=== PATIENT | male | born 1975 | race Caucasian/White ===

== ENCOUNTER 2025-01-30 11:51 | Emergency (ER) | payer OTHER ==
[2025-01-30] MEDS ORDERED: ASPIRIN 81 MG CHEWABLE TABLET ONE (12:20)
[2025-01-30 12:25] LABS: Absolute Lymphocytes (CBC) 1.7 K/uL (0.7-4.9); Absolute Monocytes 0.5 K/uL (0.1-1.3); Basophils % 0.8 % (0-1.3); Eosinophils % 0.7 % (0-4.4); Hematocrit 40.9 % (39.6-49.0); Hemoglobin 14.1 g/dL (13.6-17.9); Lymphocytes % 26.9 % (15.3-44.8); MCHC 34.3 g/dL (32.0-36.0); MPV 7.3 fL (7.6-11.3); Monocytes % 8.5 % (3.3-12.3); Neutrophils % 63.1 % (41.7-73.7); Platelets 302 thou/uL (152-406); Red Cell Distribution Width 14.3 % (12.1-15.2)
[2025-01-30 12:43] LABS: Anion Gap 7.1 mEq/L (5.0-15.0); Potassium 4.1 mEq/L (3.5-5.1); Troponin High Sensitivity 4.9 pg/mL (<58.9)
--- NOTE | 2025-01-30 13:04 | RAD REPORT ---
Procedure: Chest Single View HISTORY: Chest pain COMPARISON: none FINDINGS: The lungs appear clear of acute infiltrate. No significant pleural effusion noted. The heart is normal size. IMPRESSION: No acute abnormality is displayed.
--- NOTE | 2025-01-30 15:04 | ER ---
Nurse's Notes [facility] [place]yllis Name: Miguel Reddy Age: 49 yrs Sex: Male : 1975 Arrival Date: 01/30/2025 Time: 11:51 Bed 2 Private MD: Diagnosis: Chest pain, unspecified Presentation: 01/30 12:01 Chief complaint: EMS states: CHEST PAIN RADIATING TO JAW LAST NIGHT AND THIS AM. bp Coronavirus screen: At this time, the client does not indicate any symptoms associated with coronavirus-19. Ebola Screen: No symptoms or risks identified at this time. Initial Sepsis Screen: Does the patient meet any 2 criteria? No. Patient's initial sepsis screen is negative. Does the patient have a suspected source of infection? No. Patient's initial sepsis screen is negative. Risk Assessment: Do you want to hurt yourself or someone else? Patient reports no desire to harm self or others. Onset of symptoms was January 29, 2025 at 19:00. 12:01 Method Of Arrival: EMS: [facility] bp 12:01 Acuity: YOLANDA 3 bp Triage Assessment: 12:03 General: Appears in no apparent distress. comfortable, Behavior is calm, cooperative, bp appropriate for age. Pain: Complains of pain in chest. EENT: No deficits noted. Neuro: No deficits noted. Cardiovascular: Reports chest pain. Respiratory: No deficits noted. GI: No signs and/or symptoms were reported involving the gastrointestinal system. : No signs and/or symptoms were reported regarding the genitourinary system. Derm: No deficits noted. Musculoskeletal: No deficits noted. Historical: - Allergies: 12:03 No Known Allergies; bp - PMHx: 12:03 Anxiety; bp - Immunization history:: Adult Immunizations up to date. - Infectious Disease History:: Denies. - Social history:: Smoking status: Patient denies any tobacco usage or history of. Screenin:04 [facility] ED Fall Risk Assessment (Adult) History of falling in the last 3 months, bp including since admission No falls in past 3 months (0 pts) Confusion or Disorientation No (0 pts) Intoxicated or Sedated No (0 pts) Impaired Gait No (0 pts) Mobility Assist Device Used No (0 pt) Altered Elimination No (0 pt) Score/Fall Risk Level 0 - 2 = Low Risk Oriented to surroundings. Abuse screen: Denies threats or abuse. Denies injuries from another. Nutritional screening: No deficits noted. Tuberculosis screening: No symptoms or risk factors identified. Assessment: 12:04 General: Appears in no apparent distress. Behavior is calm, cooperative, appropriate bp for age. 13:08 Reassessment: Patient appears in no apparent distress at this time. Patient is alert, bp oriented x 3, equal unlabored respirations, skin warm/dry/pink. 14:23 Reassessment: 2nd TROP SENT. bp Vital Signs: 12:01 BP 132 / 79; Pulse 87; Resp 12; Temp 98; Pulse Ox 99% ; bp 13:08 BP 114 / 82; Pulse 75; Resp 16; Pulse Ox 96% ; bp 14:23 BP 107 / 82; Pulse 78; Resp 13; Pulse Ox 98% ; bp 15:20 BP 120 / 83; Pulse 70; Resp 16; Pulse Ox 100% ; bp ED Course: 12:01 Patient arrived in ED. bp 12:02 Jeramy Booker DO is Attending Physician. ms3 12:03 Triage completed. bp 12:03 Arm band placed on. bp 12:04 Patient has correct armband on for positive identification. Client placed on continuous bp cardiac and pulse oximetry monitoring. NIBP monitoring applied. documentation lead on. Pulse ox on. NIBP on. 12:04 Patient maintains SpO2 saturation greater than 95% on room air. bp 12:06 Jarocho Venegas, RN is Primary Nurse. bp 12:16 Initial lab(s) drawn, by me, sent to lab. EKG done, by ED staff, reviewed by Jeramy Booker DO. Inserted saline lock: 20 gauge in right antecubital area, using aseptic technique. Blood collected. Flushed with 10 mL NS. 13:00 XRAY Chest (1 view) In Process Unspecified. EDMS 14:12 Troponin High Sensitivity: To be drawn at 1416 Sent. jl7 15:04 Ellis Guzman MD is Referral Physician. ms3 15:20 Provided Education on: NONE. bp 15:20 No provider procedures requiring assistance completed. IV discontinued, intact, bp bleeding controlled, No redness/swelling at site. Pressure dressing applied. Administered Medications: 12:22 Drug: Aspirin PO Chewable Tablet 324 mg PO once; 81 mg tablets x 4 Route: PO; bp 12:22 Follow up: Response: No adverse reaction bp Medication: 12:04 VIS not applicable for this client. bp Outcome: 15:04 Discharge ordered by ms3 15:20 Discharged to home ambulatory, with family, bp 15:20 Condition: stable 15:20 Discharge instructions given to patient, Instructed on discharge instructions, follow up and referral plans. Demonstrated understanding of instructions, follow-up care, 15:22 Patient left the ED. bp Signatures: Dispatcher [employer] Hemanth Atwood RN RN jl7 Jarocho Venegas RN RN bp Jeramy Booker DO DO ms3
--- NOTE | 2025-01-30 15:04 | EDPHYS ---
Physician Documentation [facility] Name: Miguel Reddy Age: 49 yrs Sex: Male : 1975 Arrival Date: 01/30/2025 Time: 11:51 Bed 2 Private MD: ED Physician Jeramy Booker HPI: 01/30 12:08 This 49 yrs old Male presents to ER via EMS with complaints of Chest Pain. ms3 12:08 49-year-old male with past medical history of anxiety presents to the emergency ms3 department via [facility] for chest pain. Patient states he began experiencing chest pain last night that resolved and then returned approximately 30 minutes prior to arrival in the emergency department. Patient states his pain has improved since EMS arrival. Patient's pain is currently 2/10 from a 5-6/10. Patient endorses nausea, denies vomiting, endorses shortness of breath. EMS notes twelve-lead was normal sinus. Historical: - Allergies: 12:03 No Known Allergies; bp - PMHx: 12:03 Anxiety; bp - Immunization history:: Adult Immunizations up to date. - Infectious Disease History:: Denies. - Social history:: Smoking status: Patient denies any tobacco usage or history of. ROS: 12:08 Constitutional: Negative for fever, and chills. Respiratory: Negative for shortness of ms3 breath, cough, wheezing, and pleuritic chest pain, Abdomen/GI: Negative for abdominal pain, nausea, vomiting, diarrhea, and constipation, MS/Extremity: Negative for injury and deformity, 12:08 Cardiovascular: Positive for chest pain, Exam: 12:08 Constitutional: This is a well developed, well nourished patient who is awake, alert, ms3 and in no acute distress. 12:08 Respiratory: Lungs have equal breath sounds bilaterally, clear to auscultation and percussion. No rales, rhonchi or wheezes noted. No increased work of breathing, no retractions or nasal flaring. Abdomen/GI: Soft, non-tender, with normal bowel sounds. No distension or tympany. No guarding or rebound. No evidence of tenderness throughout. Skin: Warm, dry with normal turgor. Normal color with no rashes, no lesions, and no evidence of cellulitis. 12:08 Cardiovascular: Rate: normal, Rhythm: regular, Pulses: no pulse deficits are appreciated, Heart sounds: normal, normal S1and S2, 12:15 ECG was reviewed by the Attending Physician. ms3 Vital Signs: 12:01 BP 132 / 79; Pulse 87; Resp 12; Temp 98; Pulse Ox 99% ; bp 13:08 BP 114 / 82; Pulse 75; Resp 16; Pulse Ox 96% ; bp 14:23 BP 107 / 82; Pulse 78; Resp 13; Pulse Ox 98% ; bp 15:20 BP 120 / 83; Pulse 70; Resp 16; Pulse Ox 100% ; bp MDM: 12:02 Medical Screening Exam initiated ms3 12:08 Differential diagnosis: abnormal EKG, acute myocardial infarction, anxiety, coronary ms3 artery disease. The patient was given aspirin in the Emergency Department. 15:05 HEART Score: History: Slightly Suspicious (0), ECG: Normal (0), Age: > 45 and < 65 ms3 years (1), Risk Factors: No Risk Factors Known (0), Troponin: < or = 1 x Normal Limit (0), Total Score = 1. Data reviewed: vital signs, nurses notes, lab test result(s), EKG, radiologic studies, and as a result, I will. Consideration of Admission/Observation Escalation of care including admission/observation considered. I considered the following discharge prescriptions or medication management in the emergency department Medications were administered in the Emergency Department. See MAR. Independent interpretation of the following test(s) in the Emergency Department EKG: See my EKG interpretation above. Counseling: I had a detailed discussion with the patient and/or guardian regarding the historical points, exam findings, and any diagnostic results supporting the discharge/admit diagnosis, lab results, radiology results, the need for outpatient follow up, to return to the emergency department if symptoms worsen or persist or if there are any questions or concerns that arise at home. ED course: Discussed labs, EKG, chest x-ray with the patient and his . Patient's troponin remains 4.9. Patient to follow-up with Dr. Guzman in 2 to 3 days. All questions were answered. Return precautions discussed include worsening symptoms, or any other concerns. 01/30 12:03 Order name: Basic Metabolic Panel; Complete Time: 12:46 ms3 01/30 12:03 Order name: CBC with Diff; Complete Time: 12:46 ms3 01/30 12:03 Order name: Magnesium; Complete Time: 12:46 ms3 01/30 12:03 Order name: Troponin HS; Complete Time: 12:46 ms3 01/30 12:47 Order name: Troponin High Sensitivity: To be drawn at 1416; Complete Time: 14:49 ms3 01/30 12:03 Order name: XRAY Chest (1 view); Complete Time: 13:05 ms3 01/30 12:03 Order name: Cardiac monitoring; Complete Time: 12:06 ms3 01/30 12:03 Order name: EKG - Nurse/Tech; Complete Time: 12:16 ms3 01/30 12:03 Order name: IV Saline Lock; Complete Time: 12:16 ms3 01/30 12:03 Order name: Labs collected and sent; Complete Time: 12:16 ms3 01/30 12:03 Order name: O2 Per Protocol; Complete Time: 12:06 ms3 01/30 12:03 Order name: O2 Sat Monitoring; Complete Time: 12:06 ms3 01/30 12:47 Order name: Repeat Cardiac Enzymes at: 1416; Complete Time: 14:12 ms3 EC:15 Rate is 89 beats/min. Rhythm is regular. QRS [place] is Normal. SC interval is normal. QRS ms3 interval is normal. Clinical impression: Normal ECG. Interpreted by me. Reviewed by me. Administered Medications: 12:22 Drug: Aspirin PO Chewable Tablet 324 mg PO once; 81 mg tablets x 4 Route: PO; bp 12:22 Follow up: Response: No adverse reaction bp Disposition Summary: 01/30/25 15:04 Discharge Ordered Notes: Location: Home ms3 Condition: Stable ms3 Diagnosis - Chest pain, unspecified ms3 Followup: ms3 - With: Ellis Guzman MD - When: 2 - 3 days - Reason: Recheck today's complaints Discharge Instructions: - Discharge Summary Sheet ms3 - Nonspecific Chest Pain, Adult ms3 Forms: - Medication Reconciliation Form ms3 - Antibiotic Education ms3 - Prescription Opioid Use ms3 - Patient Portal Instructions ms3 - Leadership Thank You Letter ms3 Signatures: Dispatcher [employer] Jarocho Conn, RN RN Jeramy Aparicio, DO ms3
[2025-01-30 15:27] VITALS: TEMP 98
[2025-01-30 15:32] VITALS: BP 120/83; O2SAT 100
--- NOTE | 2025-01-31 12:20 | EKG ---
Test Date: 2025-01-30 Test Time: 12:14:04 Medicare Compliance Auditor: Phuong CROWLEY MEASUREMENT RESULTS: Intervals: Rate: 89 VT: 142 QRSD: 88 QT: 348 QTc: 423 [place]: P: 77 VT: 142 QRS: 81 T: 66 INTERPRETIVE STATEMENTS: Normal sinus rhythm Normal ECG Compared to ECG 09/30/1992 00:58:00 No significant changes Electronically Signed On 01-31-25 12:17:36 CDT by Herbie Zhou
== END 2025-01-30 15:22 | disposition home or self-care (01) ==
LOC: ER 11:51
DX: R07.9 Chest pain, unspecified (principal); F41.9 Anxiety disorder, unspecified
CPT/HCPCS: 36415; 71045; 80048; 83735; 84484; 85025; 93005; 99285